=== PATIENT | female | born 1965 | race Two or more races ===

== ENCOUNTER 2018-08-05 15:07 | Emergency (ER) | payer OTHER ==
[~2018-08-05] VITALS: Ht 167.6 cm; Wt 60.3 kg
[~2018-08-05 15:07] MED LIST: COUMADIN10 MG PO; CRESTOR10 MG PO; DIAZEPAM10 MG PO; KLONOPIN0.125 MG/T; ORPH100T PO; PERCOCET 5/3251 TAB PO; PLAVIX75 MG PO; TENORMIN25 MG PO
[2018-08-05] MEDS ORDERED: METOPROLOL SUCC25 MG (15:17)
== END 2018-08-05 18:21 | disposition home or self-care (01) ==
LOC: ER 15:07
DX: M94.0 Chondrocostal junction syndrome [Tietze] (principal); R07.89 Other chest pain; R05 Cough

== ENCOUNTER 2018-11-01 13:39 | Emergency (ER) | payer OTHER ==
[~2018-11-01] VITALS: Ht 172.7 cm; Wt 68.0 kg
[~2018-11-01 13:39] MED LIST changes: +METOPROLOL SUCC25 MG
== END 2018-11-01 19:40 | disposition home or self-care (01) ==
LOC: ER 13:39
DX: M25.461 Effusion, right knee (principal)

== ENCOUNTER 2019-10-04 11:52 | Emergency (ER) | payer OTHER ==
[~2019-10-04] VITALS: Ht 170.2 cm; Wt 63.5 kg
[2019-10-04] MEDS ORDERED: PERCOGESIC EXT1 EACH (12:35)
[2019-10-04] MEDS ORDERED: NORVASC2.5 M1 (12:35)
== END 2019-10-04 17:20 | disposition home or self-care (01) ==
LOC: ER 11:52
DX: M54.5 Low back pain (principal)

== ENCOUNTER 2020-07-25 20:55 | Emergency (ER) | payer OTHER ==
[~2020-07-25] VITALS: Ht 170.2 cm; Wt 68.9 kg
[~2020-07-25 20:55] MED LIST changes: +NORVASC2.5 M1; +PERCOGESIC EXT1 EACH
[2020-07-25] MEDS ORDERED: ZANAFLEX2 MG PO (21:21)
[2020-07-25] MEDS ORDERED: GABAPENTIN300 M2 PO (21:21)
[2020-07-25] MEDS ORDERED: CLONAZEPAM1 MG PO (21:21)
[2020-07-25] MEDS ORDERED: ATENOLOL25 MG PO (21:21)
== END 2020-07-25 23:13 | disposition home or self-care (01) ==
LOC: ER 20:55
DX: G57.82 Other specified mononeuropathies of left lower limb (principal); M54.5 Low back pain